=== PATIENT | female | born 1975 ===

== ENCOUNTER → 2020-11-30 11:24 | Outpatient (CLI) | payer OTHER, BC, SELFPAY ==
[2020-11-30 12:23] LABS: Add Manual Diff / Slide Review NO; Basophils Absolute Auto 0 /uL (0-100); Basophils Percent Auto 0.6 % (0-2); Eosinophils Absolute Auto 100 /uL (0-450); Eosinophils Percent Auto 1.1 % (2-4); Hematocrit 37.9 % (36-46); Hemoglobin 12.2 g/dL (12.0-16.0); Lymphocytes Absolute Auto 2000 /uL (1100-4500); Lymphocytes Percent Auto 32.3 % (25-40); Mean Corpuscular HGB Conc 32.2 % (30-36); Mean Corpuscular Hemoglobin 27.2 PG (26-34); Mean Corpuscular Volume 84.3 fL (80-100); Monocytes Absolute Auto 300 /uL (0-900); Monocytes Percent Auto 5.2 % (3-14); Neutrophils Absolute Auto 3800 /uL (1500-7000); Neutrophils Percent Auto 60.8 % (50-75); Platelet Count 285 X10^3/uL (150-400); Red Blood Cell Count 4.49 X10^6/uL (4.0-5.2); Red Cell Distribution Width 14.4 % (11.6-14.8); White Blood Cell Count 6.3 X10^3/uL (4.5-11.0)
[2020-11-30 12:39] LABS: Alanine Aminotransferase 17 IU/L (<35); Albumin 4.3 g/dL (3.5-5.0); Albumin Globulin Ratio 1.3 (1.0-2.8); Alkaline Phosphatase 42 U/L (38-126); Aspartate Aminotransferase 26 IU/L (14-36); BUN Creatinine Ratio 28.3 (6-22); Bilirubin Total 0.6 mg/dL (0.2-1.3); Blood Urea Nitrogen 15 mg/dL (7-17); Calcium 9.1 mg/dL (8.4-10.2); Carbon Dioxide 25 mmol/L (22-32); Chloride 108 mmol/L (98-107); Cholesterol 175 mg/dL (140-199); Estimated Glomerular Filt Rate > 60.0 mL/min (>60); Globulin 3.2 g/dL (1.7-4.1); Glucose 90 mg/dL (70-100); HDL Cholesterol 64 mg/dL (40-60); HEMOLYSIS < 15 (0-50); LDL Cholesterol Calculated 100 mg/dL (<100); Potassium 4.1 mmol/L (3.4-5.1); Sodium 139 mmol/L (137-145); Total Protein 7.5 g/dL (6.3-8.2); Triglycerides 53 mg/dL (35-150)
[2020-11-30 13:57] LABS: TSH w/ Reflex to FT4 2.27 uIU/mL (0.47-4.68)
== END ==
PROVIDERS: PCP Family Medicine; Referring Provider Family Medicine; Visit Provider Family Medicine
DX: L21.9 Seborrheic dermatitis, unspecified (principal); Z13.220 Encounter for screening for lipoid disorders; Z13.29 Encounter for screening for other suspected endocrine disorder
CPT/HCPCS: 36415; 80053; 80061; 84443; 85025

== ENCOUNTER → 2022-09-21 10:04 | Outpatient (CLI) | payer OTHER, BC, SELFPAY ==
[2022-09-21 11:29] LABS: Add Manual Diff / Slide Review NO; Basophils Absolute Auto 0 /uL (0-100); Basophils Percent Auto 0.4 % (0-2); Eosinophils Absolute Auto 100 /uL (0-450); Eosinophils Percent Auto 1.2 % (2-4); Hematocrit 37.7 % (36-46); Hemoglobin 12.3 g/dL (12.0-16.0); Lymphocytes Absolute Auto 1800 /uL (1100-4500); Lymphocytes Percent Auto 33.5 % (25-40); Mean Corpuscular HGB Conc 32.5 % (30-36); Mean Corpuscular Hemoglobin 27.5 PG (26-34); Mean Corpuscular Volume 84.4 fL (80-100); Monocytes Absolute Auto 300 /uL (0-900); Monocytes Percent Auto 4.8 % (3-14); Neutrophils Absolute Auto 3200 /uL (1500-7000); Neutrophils Percent Auto 60.1 % (50-75); Platelet Count 288 X10^3/uL (150-400); Red Blood Cell Count 4.47 X10^6/uL (4.0-5.2); Red Cell Distribution Width 14.1 % (11.6-14.8); White Blood Cell Count 5.4 X10^3/uL (4.5-11.0)
[2022-09-21 12:04] LABS: Alanine Aminotransferase 17 IU/L (<35); Albumin 4.6 g/dL (3.5-5.0); Albumin Globulin Ratio 1.4 (1.0-2.8); Alkaline Phosphatase 41 U/L (38-126); Aspartate Aminotransferase 24 IU/L (14-36); BUN Creatinine Ratio 20.4 (6-22); Bilirubin Total 0.9 mg/dL (0.2-1.3); Blood Urea Nitrogen 11 mg/dL (7-17); Carbon Dioxide 27 mmol/L (22-32); Chloride 105 mmol/L (98-107); Cholesterol 192 mg/dL (140-199); Estimated Glomerular Filt Rate > 60 mL/min (>60); Globulin 3.2 g/dL (1.7-4.1); Glucose 89 mg/dL (70-100); HDL Cholesterol 58 mg/dL (40-60); HEMOLYSIS < 15 (0-50); LDL Cholesterol Calculated 120 mg/dL (<100); Sodium 140 mmol/L (137-145); Total Protein 7.8 g/dL (6.3-8.2); Triglycerides 71 mg/dL (35-150)
[2022-09-21 12:26] LABS: TSH w/ Reflex to FT4 2.71 uIU/mL (0.47-4.68)
== END ==
PROVIDERS: PCP Family Medicine; Referring Provider Family Medicine; Visit Provider Family Medicine
DX: N89.8 Other specified noninflammatory disorders of vagina (principal); L21.9 Seborrheic dermatitis, unspecified; Z00.00 Encounter for general adult medical examination without abnormal findings; Z12.11 Encounter for screening for malignant neoplasm of colon
CPT/HCPCS: 36415; 80053; 80061; 84443; 85025; 87210

== ENCOUNTER 2024-04-03 17:38 | Emergency (ER) | payer SELFPAY ==
[2024-04-03 17:47] VITALS: BP 157/82; PULSE 75; RESP 18; TEMP 36.4; O2SAT 100; BMI 19.0
--- NOTE | 2024-04-03 19:23 | ED.ALCOHOL ---
HPI - Alcohol <Elvira Roberson PA-C - Last Filed: 04/03/24 19:25> General Chief Complaint: Toxicology Problem Stated Complaint: brought in by employer for alcholic testing History of Present Illness HPI narrative: This is a 48 year old female that was brought to the emergency room to be alcohol tested by her employer. I did not see or evaluate this patient. After being informed of her right to deny alcohol testing, the patient left the emergency department. Related Data Previous Rx's Medication Instructions Recorded clobetasol 0.05 % topical ointment See Rx Instructions .Route 09/21/22 .COMPLEX lichen sclerosus #45 grams escitalopram oxalate 10 mg tablet See Rx Instructions PO DAILY #90 05/30/23 (Lexapro) tabs ketoconazole 2 % shampoo See Rx Instructions .Route 01/12/24 .COMPLEX #120 mL Allergies Allergy/AdvReac Type Severity Reaction Status Date / Time aspirin Allergy Severe swelling Verified 04/03/24 17:54 of face Patient History <Elvira Roberson PA-C - Last Filed: 04/03/24 19:25> Medical History (Updated 04/03/24 @ 18:45 by Eli East RN) Lichen sclerosus Social History Smoking Status: Never smoker alcohol intake: never Smoking Status: Never smoker alcohol intake frequency: 0-2 drinks per day Exam <Elvira Roberson PA-C - Last Filed: 04/03/24 19:25> Initial Vital Signs Initial Vital Signs: Vital Signs Temperature 97.6 F 04/03/24 17:47 Pulse Rate 75 04/03/24 17:47 Respiratory Rate 18 04/03/24 17:47 Blood Pressure 157/82 H 04/03/24 17:47 Pulse Oximetry 100 04/03/24 17:47 Oxygen Delivery Method Room Air 04/03/24 17:47 <Melissa Blanco DO - Last Filed: 04/04/24 01:58> Initial Vital Signs Initial Vital Signs: Vital Signs Temperature 97.6 F 04/03/24 17:47 Pulse Rate 75 04/03/24 17:47 Respiratory Rate 18 04/03/24 17:47 Blood Pressure 157/82 H 04/03/24 17:47 Pulse Oximetry 100 04/03/24 17:47 Oxygen Delivery Method Room Air 04/03/24 17:47 Course <Elvira Roberson PA-C - Last Filed: 04/03/24 19:25> Vital Signs Vital signs: Vital Signs - 8 hr 04/03/24 17:47 Temperature 97.6 F Pulse Rate 75 Respiratory Rate 18 Blood Pressure 157/82 H Pulse Oximetry 100 Oxygen Delivery Method Room Air <Melissa Blanco DO - Last Filed: 04/04/24 01:58> Vital Signs Vital signs: Vital Signs - 8 hr 04/03/24 17:47 Temperature 97.6 F Pulse Rate 75 Respiratory Rate 18 Blood Pressure 157/82 H Pulse Oximetry 100 Oxygen Delivery Method Room Air Discharge Plan Departure Patient Disposition: Home Clinical Impression: Patient left before evaluation by physician Prescriptions: No Action ketoconazole 2 % shampoo See Rx Instructions .ROUTE .COMPLEX Qty: 120 3RF Dose Instruction: APPLY TOPICALLY 3 TIMES A WEEK Rx Instructions: APPLY TOPICALLY 3 TIMES A WEEK clobetasol 0.05 % ointment See Rx Instructions .Route .COMPLEX Qty: 45 2RF Rx Instructions: Apply to affected area of genitals daily at night for 6-12 weeks; then if symptoms improve decrease to 2-3 times weekly escitalopram oxalate [Lexapro] 10 mg tablet See Rx Instructions PO DAILY Qty: 90 1RF Rx Instructions: t1 tab po daily for 2 weeks then increase to 2 tabs daily thereafter Stand Alone Forms: Patient Portal/API/Survey ED Sign-out <Melissa Blanco DO - Last Filed: 04/04/24 01:58> Cosign ED Attending Cosmichelleature Attestation: I was available for consultation.
== END 2024-04-03 18:45 | disposition home or self-care (01) ==
PROVIDERS: Emergency Provider Physician Assistant; PCP Family Medicine
CPT/HCPCS: 99281

== ENCOUNTER 2024-04-13 02:59 | Emergency (ER) | payer OTHER, BC, SELFPAY ==
[2024-04-13 03:11] VITALS: BP 136/93; PULSE 110; RESP 16; TEMP 36.7; O2SAT 100
--- NOTE | 2024-04-13 03:19 | ED.MEDCLEAR ---
HPI - Medical Clearance General Chief complaint: Medical Clearance Stated complaint: wants an alcohol blood test Time Seen by Provider: 04/13/24 03:04 Source: patient Mode of arrival: Ambulatory History of Present Illness HPI Narrative: Patient is a 48-year-old female who is here stating that she wants a alcohol blood test. Per report a couple days ago there was question about her job having concern that she was drinking. She was brought here in the emergency department and eventually left without being evaluated her having any blood test done. She was here stating that she would like a blood test because some concern about an old job contacting her new job stating that she was a ?alcohol? she denies drinking or doing any other drugs. Related Information Previous Rx's Medication Instructions Recorded clobetasol 0.05 % topical ointment See Rx Instructions .Route 09/21/22 .COMPLEX lichen sclerosus #45 grams ketoconazole 2 % shampoo See Rx Instructions .Route 01/12/24 .COMPLEX #120 mL clobetasol 0.05 % scalp solution 1 applic topical BID 2 weeks #25 mL 04/04/24 Allergies Allergy/AdvReac Type Severity Reaction Status Date / Time aspirin Allergy Severe swelling Verified 04/04/24 08:19 of face Review of Systems Review of Systems Narrative: See HPI Patient History Medical History (Updated 04/13/24 @ 03:19 by Pancho Rasheed DO) Lichen sclerosus Social History Smoking Status: Never smoker alcohol intake: never Smoking Status: Never smoker alcohol intake frequency: 0-2 drinks per day Substance Use Type: does not use Exam Initial Vital Signs Initial Vital Signs: Vital Signs Temperature 98.1 F 04/13/24 03:11 Pulse Rate 110 H 04/13/24 03:11 Respiratory Rate 16 04/13/24 03:11 Blood Pressure 136/93 H 04/13/24 03:11 Pulse Oximetry 100 04/13/24 03:11 Oxygen Delivery Method Room Air 04/13/24 03:11 Const General: cooperative, comfortable and No ill appearing Resp Effort & Inspection: normal respiratory effort Cardio Rate: regular rate MDM - Medical Clearance MDM Narrative Medical decision making narrative: There was no indication to do any sort of blood work today. Patient denies drinking. She was not clinically intoxicated. Tried to explain to the patient that any blood work today would not prove or deny that she had any alcohol in her system a couple days ago. Tried to explain the patient that there was no testing that can be done out of the emergency department to show whether or not she has had alcohol in her system over the past couple days. No further workup required in the ER. Discharge Plan Departure Patient Disposition: Home Clinical Impression: Feared condition not demonstrated Activity Restrictions/Additional Instructions: Follow-up with your primary care doctor as needed Prescriptions: No Action ketoconazole 2 % shampoo See Rx Instructions .ROUTE .COMPLEX Qty: 120 3RF Dose Instruction: APPLY TOPICALLY 3 TIMES A WEEK Rx Instructions: APPLY TOPICALLY 3 TIMES A WEEK clobetasol 0.05 % ointment See Rx Instructions .Route .COMPLEX Qty: 45 2RF Rx Instructions: Apply to affected area of genitals daily at night for 6-12 weeks; then if symptoms improve decrease to 2-3 times weekly clobetasol 0.05 % solution 1 applic topical BID 14 Days Qty: 25 1RF Referrals: Angelo Cook MD [Primary Care Provider] - Stand Alone Forms: Patient Portal/API/Survey
== END 2024-04-13 03:30 | disposition home or self-care (01) ==
PROVIDERS: Emergency Provider Emergency Medicine; PCP Family Medicine
DX: Z71.1 Person with feared health complaint in whom no diagnosis is made (principal)
CPT/HCPCS: 99281